=== PATIENT | female | born 1945 | race Caucasian/White ===

== ENCOUNTER 2017-04-03 14:29 | Inpatient (IN) | payer BC ==
--- NOTE | ~2017-04-03 | HP ---
History And Physical [place] [id number] [facility] [place]. [address] NAME: TY JEAN-BAPTISTE : 49 STATUS : REG ER PAT#: [id number] AGE: 71 ADM/REG DATE : 04/03/17 MR#: [id number] REPORT SERV DATE: 04/03/17 DICTATED BY: JASPER MARTELL DATE: 04/03/17 REPORT STATUS : Draft TRANSCRIBED BY: MODL DATE: 04/03/17 DATE OF ADMISSION: 04/03/2017 CHIEF COMPLAINT: Right foot infection, blood sugar high. HISTORY OF PRESENT ILLNESS: Obtained from the patient as well as the patient's family present at bedside and emergency room documents. There are no other prior medical records available for us to review. According to the information available, the patient is a pleasant 71-year-old white woman with known history of diabetes type 2 for forty years, insulin dependent, smoker, who had experienced a wound on the right foot/right fourth toe. Apparently, symptoms started several weeks ago, two to three weeks ago with small callus and then increasing redness, swelling with increased drainage, increasing pain on the right foot. She has noted that the redness and swelling has progressed from the fourth right toe to the dorsum and the plantar aspect of the right foot. No fever or chills described. Not being able to put significant weight or walk on the right foot. The patient had been seen outside by a life scientist as well as being referred to [facility] with appointment next week on 04/12/2017. Because of continuing problems with the above- mentioned redness and swelling as well as not improving despite being placed on antibiotics since 03/23/2017, the patient's family decided to bring her to the emergency room. In the emergency room, the patient was instigated, was noticed to have elevated white cell count as well as x-rays showing osteomyelitis with a fracture of the right fourth toe, therefore the patient was referred to the Hospitalist Service for further management and evaluation. Apparently, the life scientist services were already consulted from the emergency room department. PAST MEDICAL HISTORY: Significant for diabetes type 2 for forty years, insulin dependent, history of hypothyroid, history hyperlipidemia, history of arrhythmia with a prior permanent pacemaker placed apparently for some type of "heart block" in 2006 at [place], history of likely peripheral vascular disease, history of "heart failure". The patient being told also in 2006 that she had heart failure, but apparent in the context of significant and prolonged hospitalization for over three months at that time as detailed below, history of continued smoking with tobacco dependency disorder despite strong advise to quit doing so, history of diabetic peripheral neuropathy, history of GERD and history of low likely diabetic gastroparesis, history of prior prolonged hospitalization with abdominal surgery/perforated ulcers/stomach that required extensive surgery and hospitalization for three months at [facility] in 2006. Also that time, the patient had the above-mentioned pacemaker placed for "heart block" and at that time, she was told that she had heart failure in the context of multiple organ failure as related by the patient. Note that the patient has not seen a head pumper or a specialist since then. PAST SURGICAL HISTORY: As mentioned above, previous surgery for stomach perforation with prolonged hospitalization at [facility] in 2006 and permanent pacemaker placement at that time, history of wisdom teeth removal and several other teeth removal with dentures. FAMILY HISTORY: Significant for diabetes type 2. History And Physical [address] [address] NAME: TY JEAN-BAPTISTE : 49 STATUS : REG ER PAT#: [id number] AGE: 71 ADM/REG DATE : 04/03/17 MR#: [id number] REPORT SERV DATE: 04/03/17 DICTATED BY: JASPER MARTELL DATE: 04/03/17 REPORT STATUS : Draft TRANSCRIBED BY: NATALIE DATE: 04/03/17 SOCIAL HISTORY: , lives with her . Retired. Her daughter lives with them and sees with ADLs and whatever she would need. She smokes one pack of cigarettes daily, sometimes over for many years. Denies alcohol abuse. Denies illicit or recreational drug abuse. ALLERGIES: NO KNOWN DRUG ALLERGIES. MEDICATIONS AT HOME: According to the list provided, the patient is supposed to take aspirin 325 mg p.o. daily, BuSpar 15 mg p.o. b.i.d., vitamin D 1000 units p.o. daily, ciprofloxacin/Cipro 500 mg p.o. b.i.d. for fifteen days started on 03/23/2017, Neurontin 800 mg p.o. t.i.d., gentamicin ointment apply topically b.i.d. to the right fourth toe as instructed by her life scientist, NovoLog sliding scale three times a day p.r.n. blood sugar more than 200, Lantus 24 units subcu at bedtime, Synthroid 175 mcg p.o. daily, Reglan 10 mg p.o. q.i.d. before meals and at bedtime, multiple vitamin with minerals 1000 p.o. daily, Percocet 7.5/325 one p.o. at bedtime, Protonix 40 mg p.o. daily, Systane ophthalmic drops every two hours p.r.n. both eyes, Zocor 20 mg p.o. at bedtime. REVIEW OF SYSTEMS: As per H and P, otherwise negative in all review of systems. Please note, the comprehensive review of system was obtained and pertinent positives were including in the H and P. PHYSICAL EXAMINATION: GENERAL: Pleasant, cooperant, but pale, ill appearing, in mild distress due to the pain of the right foot area. VITAL SIGNS: Upon arrival in the emergency room, blood pressure 139/65, pulse 65, respiratory rate 18, temperature 98.6, oxygen saturation 94% in room air. HEENT: Pupils equal, round, and reactive to light. Extraocular movements intact. Slight exophthalmos and atraumatic and normocephalic. Dentures in place. NECK: Supple. No JVD. No bruits. No thyromegaly. No lymph nodes. LUNGS: Emphysematous confirmation with left subclavicular pacemaker in place. Good airway movement. Few scattered crackles bilateral bases. HEART: Positive S1, S2. Regular rate and rhythm. Positive soft mitral regurgitation murmur at the apex. PMI not displaced by palpation. No rub. No gallop. ABDOMEN: Positive bowel sounds. Soft. Midline previous surgical scar from infraumbilical to the sternum. No masses. No hepatosplenomegaly. No guarding. Soft. No rebound tenderness. EXTREMITIES: Decreased range of motion with osteoarthritic changes. No clubbing, no cyanosis, no edema. No calf tenderness. +1 pulses and diminished over the right foot area with significant swelling to the distal right foot with cellulitic changes extending on the dorsum of the right foot with significant cellulitis wound and redness tenderness and drainage at the fourth toe area. NEUROLOGIC: Alert and oriented x3. Grossly nonfocal. Cranial nerves 2 through 12 grossly intact. Motor strength 5/5, symmetrical bilateral. Deep tendon reflexes 2/2, symmetrical bilateral. BACK: With decreased range of motion, but no focal localized tenderness. No CVA tenderness. History And Physical [address] [address] NAME: TY JEAN-BAPTISTE : 49 STATUS : REG ER PAT#: [id number] AGE: 71 ADM/REG DATE : 04/03/17 MR#: [id number] REPORT SERV DATE: 04/03/17 DICTATED BY: JASPER MARTELL DATE: 04/03/17 REPORT STATUS : Draft TRANSCRIBED BY: MODL DATE: 04/03/17 SKIN: No bruises, no rashes, no lacerations (besides the above mentioned changes of the right foot area). Please note there is also another left great toe callus on the plantar surface of the distal phalanx of the left great toe about 5 mm with surrounding redness and swelling. No significant drainage and minimal redness around it, no real cellulitic changes noticed. SIGNIFICANT LABORATORY DATA: Chest x-ray (personal reading) showed no acute infiltrate, chronic interstitial changes. EKG (personal reading) showed ventricular paced rhythm at 65 beats per minute. No further analysis possible. X-ray of the right foot/toes showed "highly suspicion for osteomyelitis of the middle right fourth toe/phalanx with displaced fracture of the head of the proximal phalanx" (full report attached to chart and discussed with the patient and family). White cell count 13.2, hemoglobin 17.2, platelet count 392. INR 1. Sodium 139, potassium 4, chloride 101, bicarb 35, BUN 14, creatinine 0.34, glucose 113, calcium 9.2. Liver function tests within normal limits except albumin 3.4, which is only minimally decreased. Procalcitonin level less than 0.05. Lactate 1.2 which is within normal limits. ASSESSMENT/PLAN/PROBLEM LIST: The patient is a pleasant 71-year-old woman admitted with diabetic foot/toe wound with likely osteomyelitis of the right fourth toe that failed outpatient treatment. IMPRESSION: 1. ID problem:. a. Right diabetic foot and toe wounds. b. Osteomyelitis of the right fourth toe with phalanx fracture. c. Cellulitis of the right foot. d. Leukocytosis likely infectious and left great toe ulceration/callous noticed as well. For all the above, the patient has been admitted on the Hospitalist Service with the podiatry consultation pending, starting on IV antibiotic with IV Unasyn 1.5 g IV q.6 hours and vancomycin to be further dosed. We are going to check a CRP and ESR and further management depending on the patient's response to the treatment and depending on life scientist's recommendation, likely surgical intervention needed. 1. Cardiovascular:. a. Arrhythmia, status post permanent pacemaker for what was told ten years ago that was "heart block". Continue to monitor for now. Check a CK and troponin I. Consider pacer interrogation if any problems develop. b. Peripheral vascular disease, likely secondary to smoking. Continue aspirin for now. c. Congestive heart failure told by history ten years ago after prolonged hospitalization that she had "heart failure", presently no clinical evidence of congestive heart failure and there are no specific medications and to continue treatment for congestive heart failure condition. Consider to obtain a 2D echo. 2. Endocrinologic problem. a. Diabetes type 2, insulin dependent with complications. We are going to continue Lantus/Levemir, long-acting insulin, we will check a hemoglobin A1c. Provide diabetic education. Continue sliding scale. History And Physical [address] [address] NAME: TY JEAN-BAPTISTE : 49 STATUS : REG ER PAT#: [id number] AGE: 71 ADM/REG DATE : 04/03/17 MR#: [id number] REPORT SERV DATE: 04/03/17 DICTATED BY: JASPER MARTELL DATE: 04/03/17 REPORT STATUS : Draft TRANSCRIBED BY: NATALIE DATE: 04/03/17 b. Hyperlipidemia, mixed-type, low-cholesterol diet, continue Zocor. c. Hypothyroid. Continue Synthroid. Check a TSH. 3. Pulmonary:. a. Tobacco dependency disorder. Provide smoking cessation education and offer nicotine replacement therapy as a nicotine patch 21 mg daily. b. Chronic obstructive pulmonary disease (likely). Encourage smoking cessation and provide bronchodilator therapy p.r.n. shortness of breath. 4. Diabetic peripheral neuropathy. Continue Neurontin. Provide diabetic control. 5. GI problem with:. a. Gastroesophageal reflux disease, status post surgery for "stomach perforation ulcer" ten years ago. b. Diabetic gastroparesis. For all the above, we are going to continue above medications as per home including Reglan, including PPI. PROGNOSIS: Moderately good for this admission. Discussed with patient. Questions were answered in full. Please note, also the written H and P, and written orders and instructions. Please note, the patient is a full code at this moment as discussed with the patient bedside. STACY/NATALIE Jasper Martell M.D. / [id number] CC: Vic Guillermo M.D.
--- NOTE | ~2017-04-03 | DS ---
Discharge Summary [facility] [address] [place]. [address] NAME: TY JEAN-BAPTISTE : 49 STATUS : ADM IN PAT#: [id number] AGE: 71 ADM/REG DATE : 04/03/17 MR#: [id number] REPORT SERV DATE: 04/13/17 DICTATED BY: LUBA LEVY DATE: 04/13/17 REPORT STATUS : Draft TRANSCRIBED BY: MODL DATE: 04/13/17 ADMISSION DATE: 04/03/2017 DISCHARGE DATE: 04/13/2017 FINAL HOSPITAL DIAGNOSES: Listed in interim summary. CONSULTATIONS: Listed in interim summary. PROCEDURES: Listed in interim summary. CURRENT PHYSICAL FINDINGS AND HPI: Please see dictated H and P as well as interim summary dictated by myself same day. The patient was re-evaluated today with an upper extremity ultrasound to rule out DVT which was negative. She was also seen again by Cardiology and felt her left upper extremity edema was not due to her pacemaker. She was therefore felt stable for discharge today after recommendations from Infectious Disease on her diabetes. Disposition: Discharged home. Rx: Norvasc 5 twice a day, aspirin 325 once per day, BuSpar 15 b.i.d., Plavix 75, Santyl ointment, vitamin D 1000, Garamycin ophthalmic, Neurontin 800 t.i.d., Lantus 10 at bedtime, home sliding scale, levothyroxine 175, Reglan 10 before meals and at bedtime, multivitamin, Protonix 40, Betadine, Zocor 20, Systane eye drops, and Percocet 7.5-325, doxycycline 100 b.i.d. for seven days, and Augmentin 875 b.i.d. x7 days. She is to follow up with Vascular in four to six weeks, her PCP in 10-14 days, Podiatry as instructed by them. Home health was also arranged. She will follow up with her PCP in 10- 14 days to check her blood sugars and her blood pressure and coordinate all her followup care. I did ask her to adjust her sliding scale down 50% or so and to start this evening with 10 of Lantus as she has previously been taking 24 and getting 7 b.i.d. here. She will titrate her sugars up as appropriate. She will return for any problems or complications. DICTATED BY: Lobo Ricardo/NELYL Luba Levy M.D. / [id number] CC: Lobo Ricardo M.D.
--- NOTE | ~2017-04-03 | OP ---
Record Of Operation [facility] [address] [place]. [address] NAME: TY JEAN-BAPTISTE : 49 STATUS : ADM IN PAT#: [id number] AGE: 71 ADM/REG DATE : 04/03/17 MR#: [id number] REPORT SERV DATE: 04/10/17 DICTATED BY: LAURENT KO DATE: 04/10/17 REPORT STATUS : Draft TRANSCRIBED BY: MODL DATE: 04/10/17 DATE OF PROCEDURE: 04/10/2017 SURGEON: Laurent Ko D.P.M. PREOPERATIVE DIAGNOSES: Osteomyelitis, right fourth digit; abscess, right fourth and fifth digits; gangrenous change to the right fourth digit. POSTOPERATIVE DIAGNOSES: Osteomyelitis, right fourth digit; abscess, right fourth and fifth digits; gangrenous change to the right fourth digit. PROCEDURE: Amputation of the fourth and fifth digits at the metatarsophalangeal joint level, resection of the fourth and fifth metatarsal head to facilitate closure. ANESTHESIA: Local MAC consisting of 20 mL of 0.5% Marcaine plain administered at the fourth and fifth metatarsals in a Jonas block fashion. Postoperative injection was the same. HEMOSTASIS: No pneumatic ankle tourniquet was utilized. ESTIMATED BLOOD LOSS: 30 mL. MATERIALS: 0 Prolene. PATHOLOGICAL SPECIMENS: Consist of fourth and fifth digits as well as fourth and fifth metatarsal heads sent separately to rule out osteomyelitis. DESCRIPTION OF PROCEDURE: The patient was visually and verbally identified in the holding as 71-year-old white female Ty Jean-Baptiste. The patient had been cleared for this procedure. She had no questions. Right foot was identified for surgical intervention. The patient had given consent for the procedure stating that the day prior that she wished to have any procedure done necessary so she would not have to return to the operating room. That was witnessed in front of family members. The patient was then taken to the operating room and placed on the operating room table in supine position. After adequate IV sedation was achieved, a local block consisting of 20 mL of 0.5% Marcaine plain was administered to the fourth and fifth metatarsals in a Jonas block fashion. The patient was then prepped and draped in usual sterile fashion. Attention was then directed to fourth and fifth digits, whereby the fourth digit was undergoing gangrenous change, abscess was noted. metatarsophalangeal joint with extension to the fifth metatarsophalangeal joint and ulceration at the metatarsophalangeal joint level. Plantar abscess was noted to this level as well minimal in nature. In light of this fact, the decision was made for removal of the fourth and fifth digits secondary to dissecting abscess. This was accomplished. All necrotic tissue was then removed and debrided to obtain tensionless closure. The fourth and fifth metatarsal heads were then resected at the anatomical necks. The wound was then flushed with approximately 3 liters of normal saline and high-pressure irrigation. No proximal abscess was noted. The wound was then closed in simple interrupted fashion utilizing 0 Prolene. Betadine solution, dry sterile dressing was applied. The foot Record Of [address] [address] NAME: TY JEAN-BAPTISTE : 49 STATUS : ADM IN [facility]#: [id number] AGE: 71 ADM/REG DATE : 04/03/17 MR#: [id number] REPORT SERV DATE: 04/10/17 DICTATED BY: LAURENT KO DATE: 04/10/17 REPORT STATUS : Draft TRANSCRIBED BY: NATALIE DATE: 04/10/17 remained warm throughout the procedure. Adequate bleeding was accomplished. AMISHA/NATALIE Ghislaine OharaPStevie / [id number] CC: Lobo Ricardo M.D.
--- NOTE | ~2017-04-03 | CN ---
Consultation Report [facility] [address] [place]. [address] NAME: TY JEAN-BAPTISTE : 49 STATUS : ADM IN [facility]#: [id number] AGE: 71 ADM/REG DATE : 04/03/17 MR#: [id number] REPORT SERV DATE: 04/05/17 DICTATED BY: JIMMY SEN DATE: 04/05/17 REPORT STATUS : Draft TRANSCRIBED BY: MODL DATE: 04/05/17 ELECTROPHYSIOLOGY CONSULTATION DATE OF CONSULTATION: 04/05/2017 INDICATIONS: Pacer end of service. HISTORY OF PRESENT ILLNESS: Ty Jean-Baptiste is a 71-year-old female with poorly controlled diabetes and existing pacemaker implanted many years ago. She has not returned for followup in quite some time. Her pacemaker reached elective replacement interval 01/2014. She again has not been seen for followup and device is now at end of service on today's pacemaker interrogation. I have reviewed the pacemaker interrogation and agree with findings. The patient is admitted with osteomyelitis and foot infection. She had noted swelling of her right fourth toe as well as some edema. She was placed on some Cipro. This apparently progressed, the redness spread, and then she admitted to the hospital, and placed on vancomycin and Unasyn. Podiatry has been seeing the patient and Vascular Surgery has been consulted. She was noted to be VVI pacing at 65 beats per minute and a pacemaker interrogation which shows her to be at end of service with better voltage of 2.2 V. She is not pacemaker dependent. She denies chest pain or shortness of breath. PAST MEDICAL HISTORY: Diabetes, hyperlipidemia, bradycardia/sick sinus syndrome, status post pacemaker, peripheral neuropathy, history of perforated ulcer. ALLERGIES: NONE KNOWN. PRESENT MEDICATIONS: Aspirin, BuSpar, Neurontin, NovoLog, Synthroid, Reglan, Theragran, Florastor, Protonix, Zocor, thiamine, and Levemir as well as Unasyn and vancomycin. SOCIAL HISTORY: , lives with her daughter and her . She continues to smoke. No alcohol. FAMILY HISTORY: Reviewed and notable for diabetes. REVIEW OF SYSTEMS: As per the HPI. Otherwise, all review of systems negative. PHYSICAL EXAMINATION: VITAL SIGNS: Blood pressure 141/67, pulse 65, respiratory rate 18. GENERAL: Appears stated age, no distress. EYES: Sclerae anicteric, no arcus senilis. MOUTH: Oral mucosa moist, lips acyanotic. NECK: Jugular venous pressure normal, no carotid bruits. Consultation Report [place] [address] [place]. [address] NAME: TY JEAN-BAPTISTE : 49 STATUS : ADM IN [facility]#: [id number] AGE: 71 ADM/REG DATE : 04/03/17 MR#: [id number] REPORT SERV DATE: 04/05/17 DICTATED BY: JIMMY SEN DATE: 04/05/17 REPORT STATUS : Draft TRANSCRIBED BY: NATALIE DATE: 04/05/17 LUNGS: Coarse breath sounds bilateral bases. CARDIAC: Regular rate and rhythm, no murmurs, gallops or rubs. ABDOMEN: Soft, nondistended, nontender. EXTREMITIES: Right fourth toe erythematous and swollen. In additionally, left infraclavicular pacemaker site well healed. No evidence of erosion or migration. SKIN: Warm and dry. NEURO/PSYCH: Alert and oriented, nonfocal, mood appropriate. LABORATORY DATA: Potassium is 3.9, creatinine 0.7. White count 13, hemoglobin 14.7, platelets 398. Troponin negative. TSH 1.8. ECG is ventricular paced. IMPRESSION: 1. Pacer end of service, history sick sinus syndrome. 2. Osteomyelitis. 3. Diabetes. RECOMMENDATIONS: The patient is awaiting surgical intervention soon. We will plan for placement of her dual-chamber pacemaker. Addressed with her and family the rationale, logistics, and risk of pacemaker replacement. Risk include but not limited to bleeding, infection, vascular complications, disruption of system. I have discussed with them the increased risk of infection, given the present situation they voiced understanding. All questions were answered. LIAM/NATALIE Jimmy Sen M.D. / [id number] CC: MD Vic Logan M.D.
--- NOTE | ~2017-04-03 | CN ---
Consultation Report [facility] [address] [place]. [address] NAME: TY JEAN-BAPTISTE : 49 STATUS : ADM IN PAT#: [id number] AGE: 71 ADM/REG DATE : 04/03/17 MR#: [id number] REPORT SERV DATE: 04/08/17 DICTATED BY: VLAD JACOBO II DATE: 04/07/17 REPORT STATUS : Draft TRANSCRIBED BY: NATALIE DATE: 04/07/17 DATE OF CONSULTATION: 04/07/2017 REASON FOR CONSULTATION: Peripheral vascular disease. HISTORY OF PRESENT ILLNESS: Ms. Jean-Baptiste is a 71-year-old female who complains of a pain in her right foot. She has had pain over the past month with "chronic sore." She had been on antibiotics in the past with limited relief. She has a history of claudication primarily in the calf. She denies wrist pain in either extremity. PAST MEDICAL HISTORY: Diabetes, bradycardia, previous pacemaker, neuropathy, history of gastric ulcer, hyperlipidemia. SURGICAL HISTORY: She is postop day #1 from pacemaker. She had abdominal surgery secondary to an ulcer. CURRENT MEDICATIONS: Aspirin, BuSpar, Neurontin, insulin, Synthroid, Protonix, Zocor, Levemir. She is on Unasyn and vancomycin. ALLERGIES: NO KNOWN ALLERGIES. SOCIAL HISTORY: Prior to her recent illness, she was living at home independently, driving, ambulating, and doing her daily activities. She has a strong history of tobacco use. FAMILY HISTORY: Noncontributory. REVIEW OF SYSTEMS: She reports no previous stroke, amaurosis fugax, or TIA. She denies current chest pain. She has chronic shortness of breath. No upper extremity claudication. No current abdominal pain or back pain. Her lower extremity complaints as above. PHYSICAL EXAMINATION: GENERAL: Awake and alert, pleasant female, resting comfortably in hospital bed. VITAL SIGNS: Blood pressure 136/80, pulse is 65, respiratory rate 18, temperature 98. HEENT: Airways are clear. Mucous membrane is moist. Extraocular movements intact. NECK: No bruits. No JVD. EXTREMITIES: Upper extremities have palpable pulses. Equal clinical informatics strategist and full range of motion. Lower extremities, palpable femoral pulses with a right femoral bruit noted. Diminished pedal pulses with no pedal pulse on the right side. Faintly palpable pedal pulse on the left side. Open wound is noted to the right foot. Scattered varicosities are noted. CHEST: Clear. Breath sounds equal. Pacemaker bandage in place. CARDIOVASCULAR: Regular rate. No murmur. ABDOMEN: Soft, nontender. No pulsatile mass. No abdominal bruits. BACK: Symmetric. No focal tenderness. NEURO: Nonfocal. Consultation Report [facility] [address] [place]. [address] NAME: TY JEAN-BAPTISTE : 49 STATUS : ADM IN [facility]#: [id number] AGE: 71 ADM/REG DATE : 04/03/17 MR#: [id number] REPORT SERV DATE: 04/08/17 DICTATED BY: VLAD JACOBO II DATE: 04/07/17 REPORT STATUS : Draft TRANSCRIBED BY: NATALIE DATE: 04/07/17 IMAGING: She had an ultrasound, arterial Doppler that demonstrates significant peripheral vascular disease. She has an evidence of multilevel disease with stenosis within the right iliac. Her SHILPI on the right side is 0.5 with a DBI of 0.34. ASSESSMENT AND PLAN: A 71-year-old female with extensive past medical history as well as a long history of tobacco use presents with critical ischemia of right leg with multilevel occlusive disease. I recommended continuing her medical therapy. I recommended proceeding with angiogram of the right leg for further evaluation and possible endovascular therapy. Thank you for allowing me to be involved in the care of Ms. Ty Jean-Baptiste. STELLA/NATALIE Vlad Jacobo II, M.D. / [id number] CC: Lobo Ricardo
--- NOTE | ~2017-04-03 | CN ---
Consultation Report [facility] [address] [place]. [address] NAME: TY JEAN-BAPTISTE : 49 STATUS : ADM IN [facility]#: [id number] AGE: 71 ADM/REG DATE : 04/03/17 MR#: [id number] REPORT SERV DATE: 04/05/17 DICTATED BY: SILVIA ANDRADE DATE: 04/05/17 REPORT STATUS : Draft TRANSCRIBED BY: MODL DATE: 04/05/17 INFECTIOUS DISEASE CONSULTATION DATE OF CONSULTATION: 04/05/2017 REASON FOR CONSULTATION: Osteomyelitis and foot infection in a diabetic. HISTORY OF PRESENT ILLNESS: This is a 71-year-old female with a past medical history notable for longstanding diabetes, along with multiple other medical problems as outlined below. About a month ago, she noticed some redness and swelling around her right fourth toe. She does not recall any sort of trauma to the toe. She also developed some drainage, and she saw a harbor police lieutenant who placed her on Cipro. The patient tells me she took Cipro for about three weeks, but things did not improve and the redness spread to the top of the foot. She had increasing pain. For all these reasons, she presented to the emergency room and was admitted on 04/03 with obvious infection with x-rays showing a fracture of the fourth toe with associated osteomyelitis changes of the middle phalanx and possibly head of the proximal phalanx. After blood cultures were obtained, she was started on vancomycin and Unasyn. The patient has been evaluated by Dr. Ko, who has ordered a bone scan. Arterial Doppler studies show evidence of PID, and Vascular Surgery has been consulted. She has had no fever here. Denies any nausea. She also denies any outpatient dysuria. A Navas catheter was placed yesterday. PAST MEDICAL HISTORY: In addition to the diabetes is notable for hypothyroidism; hyperlipidemia; dysrhythmias and heart block, for which she has a pacemaker; possible congestive heart failure; longstanding tobacco abuse; peripheral neuropathy; perforated ulcer possibly in 2006 requiring abdominal surgery at [place]. ALLERGIES: NO KNOWN DRUG ALLERGIES. PRESENT MEDICATIONS: In addition to the antibiotics include aspirin, BuSpar, vitamin D, Neurontin, insulin sliding scale, Synthroid, Reglan, multivitamins, Protonix, Florastor, Zocor, thiamine, Levemir. SOCIAL HISTORY: She is . Her daughter lives with her and her . Her son is here in the room with her now. Continues to smoke a pack of cigarettes a day. Nondrinker. FAMILY HISTORY: Notable for diabetes. REVIEW OF SYSTEMS: As outlined above, otherwise negative. PHYSICAL EXAMINATION: VITAL SIGNS: The patient weighs 76 kg. She has been afebrile. Blood pressure 141/67, pulse 65, respiratory rate 16. Consultation Report [address] [place]. [address] NAME: TY JEAN-BAPTISTE : 49 STATUS : ADM IN PAT#: [id number] AGE: 71 ADM/REG DATE : 04/03/17 MR#: [id number] REPORT SERV DATE: 04/05/17 DICTATED BY: SILVIA ANDRADE DATE: 04/05/17 REPORT STATUS : Draft TRANSCRIBED BY: NATALIE DATE: 04/05/17 GENERAL: She is alert, in no acute distress. HEAD AND NECK: The oral cavity shows teeth in very poor repair. No thrush. LUNGS: Clear to auscultation. CARDIAC: Regular rate and rhythm. Normal S1 and S2 without murmur, gallop, or rub. She has a pacemaker. ABDOMEN: Bowel sounds present. Soft, nondistended, nontender. EXTREMITIES: Right foot exam shows diffuse edema and erythema of the right fourth toe with similar changes of the fifth toe with a lot of crusting between the two from some dried drainage. There are cellulitic changes extending to the base of the fourth and fifth toes on the dorsum of the foot and somewhat into the plantar aspect of the toe also. She has a peripheral IV in her arm without phlebitis. LABORATORY STUDIES: White blood cell count yesterday 13.0, hemoglobin 13.2, platelets 398. Creatinine 0.77, albumin 2.6. Liver function tests are normal. Hemoglobin A1c on admission 12.0. Sedimentation rate 23. C-reactive protein 20.8. Admission blood cultures negative to date. Urinalysis yesterday showed large leukocyte esterase, greater than 182 white blood cells and many white blood cell clumps. Urine culture is growing what appears to be yeast. Chest x-ray is negative. Foot x-ray and Doppler studies are as mentioned. Bone scan is pending. IMPRESSION: Osteomyelitis of the fourth toe on the right foot with possible involvement of the fifth toe, along with associated cellulitis into the foot and questionable small subcutaneous abscess. The patient has very poorly controlled diabetes and has evidence of peripheral arterial disease. The patient had no symptoms of UTI as an outpatient, but did have pyuria when a Navas catheter was placed yesterday and it appears to be growing yeast. I doubt this reflects a significant Sabine cystitis. She has been on antibiotics for a while and may have become colonized with yeast. PLAN: 1. We will continue the vancomycin and Unasyn pending further vascular workup and then anticipated surgery by Podiatry. 2. Given the degree of pyuria, we will give her one dose of fluconazole, but otherwise we will not treat this as a true UTI. LIYA/NATALIE Silvia Andrade M.D. / [id number] CC: Darwin Garnett MD Consultation Report [address] [address] NAME: TY JEAN-BAPTISTE : 49 STATUS : ADM IN [facility]#: [id number] AGE: 71 ADM/REG DATE : 04/03/17 MR#: [id number] REPORT SERV DATE: 04/05/17 DICTATED BY: SILVIA ANDRADE DATE: 04/05/17 REPORT STATUS : Draft TRANSCRIBED BY: NATALIE DATE: 04/05/17 Vic Guillermo M.D.
--- NOTE | ~2017-04-03 | OP ---
Record Of Operation [facility] [address] [place]. [address] NAME: TY JEAN-BAPTISTE : 49 STATUS : ADM IN PAT#: [id number] AGE: 71 ADM/REG DATE : 04/03/17 MR#: [id number] REPORT SERV DATE: 04/08/17 DICTATED BY: VLAD JACOBO II DATE: 04/08/17 REPORT STATUS : Draft TRANSCRIBED BY: MODL DATE: 04/08/17 DATE OF PROCEDURE: 04/08/2017 SURGEON: Vlad Jacobo M.D. PREOPERATIVE DIAGNOSES: 1. Peripheral vascular disease. 2. Critical ischemia, right leg, with ulceration. POSTOPERATIVE DIAGNOSES: 1. Peripheral vascular disease. 2. Critical ischemia, right leg, with ulceration. PROCEDURES: 1. Ultrasound-guided sheath insertion in the left common femoral artery. 2. Abdominal aortogram. 3. Right leg angiogram. 4. Percutaneous angioplasty and stent placement of right superficial femoral artery occlusion. ANESTHESIA: Local with MAC. IV FLUIDS: 500. ESTIMATED BLOOD LOSS: 10. CONTRAST: 80. DETAILS: The patient was taken to the operating room and placed in supine position on the table. Both groins were prepped and draped. I used ultrasound to identify the left common femoral artery, performed a puncture, and placed a 5-[place] sheath. I then passed a catheter into the abdominal aorta. Aortogram was performed demonstrating a patent abdominal aorta. Calcification is seen. Both renal vessels are patent. The iliacs are patent. There is a mild irregularity noted in the right common iliac, but no focal stenosis is seen. I then passed a catheter into the right common femoral. Right leg angiogram demonstrates a patent common profunda. The SFA is completely occluded just beyond its origin. There is reconstitution of the popliteal below this. All three tibial vessels appear to be patent. We then heparinized the patient, passed a 6-[place]orese sheath over the bifurcation. I was able to pass a wire and catheter through the occlusion within the superficial femoral artery and into the true lumen of the popliteal. We then performed angioplasty of the entire length of the superficial femoral artery using a 5 mm balloon. Completion angiogram demonstrates a good result in the proximal SFA with no further stenosis seen. However, in the distal SFA, there is still stenosis of more than 30% as well as a flow limiting dissection with contrast, sluggish, through this area. We then elected to proceed with stent placement. We advanced a 6-mm stent into the distal SFA and deployed the stent without difficulty. Completion angiogram demonstrates excellent result with no further stenosis, no further Record Of Operation [address] [place]. [address] NAME: TY JEAN-BAPTISTE : 49 STATUS : ADM IN PAT#: [id number] AGE: 71 ADM/REG DATE : 04/03/17 MR#: [id number] REPORT SERV DATE: 04/08/17 DICTATED BY: VLAD JACOBO II DATE: 04/08/17 REPORT STATUS : Draft TRANSCRIBED BY: MODNatasha DATE: 04/08/17 dissection, and improved flow is noted distally. I then removed all the wires and catheters, and closed percutaneously. At the end of procedure, the patient was stable. She had tolerated well. She had a palpable pulse in the right foot. She was transported to the recovery room in good condition. STELLA/NATALIE Vlad Jacobo II, M.D. / [id number] CC: Lobo Ricardo M.D.
--- NOTE | ~2017-04-03 | IDS ---
Interim Discharge Summary [facility] [address] [place]. [address] NAME: TY JEAN-BAPTISTE : 49 STATUS : ADM IN [facility]#: [id number] AGE: 71 ADM/REG DATE : 04/03/17 MR#: [id number] REPORT SERV DATE: 04/13/17 DICTATED BY: LUBA LEVY DATE: 04/13/17 REPORT STATUS : Draft TRANSCRIBED BY: MODL DATE: 04/13/17 ADMISSION DATE: 04/03/2017 DISCHARGE DATE: 04/13/2017 FINAL HOSPITAL DIAGNOSES: 1. Osteomyelitis, right fourth digit, status post amputation of fourth and fifth digits at the metatarsal phalangeal joint, resection of the fourth and fifth metatarsal head. 2. Peripheral vascular disease, status post percutaneous angioplasty and stent placement of the right superficial femoral artery. 3. Pacemaker, end of life diagnosis with subsequent replacement of pacemaker. 4. Diabetes. 5. Left upper extremity edema. 6. Tobacco dependence. 7. Gastroesophageal reflux disease. CONSULTATIONS: Dr. Andrade, Infectious Disease; Dr. Sen, Cardiology; Dr. Wong, Vascular Surgery; and Dr. Ko, Podiatry. PROCEDURES: Pacemaker placement and the above-described foot surgery. OTHER PROCEDURES: Include: 1. Arterial Doppler of the lower extremities showing significant left iliac stenosis and stenosis in the left SFA. 2. Ultrasound of the left upper extremity done on 04/10/2017 showing no left upper extremity venous thrombus demonstrated. 3. Bone scan done on 04/08/2017 showing osteomyelitis of the right fourth toe. CURRENT PHYSICAL FINDINGS AND HISTORY OF PRESENT ILLNESS: Please see initial dictated H and P by Dr. Martell. In brief, the patient is a 71-year-old female with above medical history who presented with above complaints. Vital signs at time of admission: Blood pressure was 139/65, temp was 98.6, pulse was 65. She has remained afebrile during her hospital stay. LABORATORY WORK: Procalcitonin was less than 0.05 at admission. No significant electrolyte abnormalities noted. A1c was 12. Initial white count was 13.2, subsequent has improved. Urinalysis showed positive bacteria. Blood cultures have been negative at four days. Urine culture showed multiple organisms, just contamination. Foot wound cultures were not available. HOSPITAL COURSE: The patient was admitted to the Medical Service and was started on antibiotics and sliding scale for her blood sugar coverage. Cultures were drawn. Podiatry was consulted, and the patient was afebrile. Cardiology was consulted when it was found the pacer was end of life before any other surgeries were entertained. Vascular was consulted. ID was consulted for above. Initially, Dr. Garnett was in-charge of her care. She was provided reasonable pain and nausea medications. She underwent pacemaker placement without difficulty. She then proceeded to Vascular and then ultimately to surgical repair of her problems. Postop, she was able to titrate off pain medications. She was able to Interim Discharge Summary [facility] [id number] [facility] [place]. [address] NAME: TY JEAN-BAPTISTE : 49 STATUS : ADM IN [facility]#: [id number] AGE: 71 ADM/REG DATE : 04/03/17 MR#: [id number] REPORT SERV DATE: 04/13/17 DICTATED BY: LUBA LEVY DATE: 04/13/17 REPORT STATUS : Draft TRANSCRIBED BY: NATALIE DATE: 04/13/17 discontinue her Navas and begin ambulation. She had no significant cardiac issues during her stay. She, postprocedure, did complain of some swelling to her upper extremities, and ultrasound was done showing no clot. She did not have anything that appeared to be infectious with her pacemaker site. Postamputation, she had no bleeding or wound issues. The patient did complain of some generalized edema, but her edema was certainly worse in the left upper extremity. CURRENT DISPOSITION AND PLAN: The patient is planning on going home. She will have a repeat upper extremity ultrasound today to rule out any significant changes as the family feels her swelling is somewhat worse. She will be given Lasix. She is currently off O2 and ambulatory. Wound care has been set up. We will check with Cardiology if there is any concern that her pacer placement might have contributed to the swelling. ID has switched her over to p.o. antibiotics. Pending upper extremity evaluation, may discharge later today with outpatient antibiotics and rehab. MICHAEL/NATALIE Luba Levy M.D. / [id number] CC: Lobo Ricardo M.D.
[2017-04-03 14:55] LABS: BASOPHILS 0.4 %; BASOPHILS ABSOLUTE 0.05 10/3/uL (0.0-0.16); EOSINOPHILS 0.8 %; EOSINOPHILS ABSOLUTE 0.11 10/3/uL (0.0-0.53); HEMATOCRIT 48.6 % (36.0-48.0); HEMOGLOBIN 17.2 g/dL (12.0-16.0); IMMATURE GRANULOCYTES 0.3 %; IMMATURE GRANULOCYTES ABSOLUTE 0.04 10/3/uL (0.0-0.11); LYMPHOCYTES 12.1 %; MANUAL DIFF NO %; MEAN CORPUS HGB CONC 35.4 g/dL (32.0-36.0); MEAN CORPUSCULAR HEMOGLOB 32.3 pg (26.0-34.0); MEAN CORPUSCULAR VOLUME 91.4 fL (80-100); MEAN PLATELET VOLUME 9.3 fL (9.2-13.0); MONOCYTES 9.4 %; MONOCYTES ABSOLUTE 1.25 10/3/uL (0.21-1.20); NEUTROPHILS ABSOLUTE 10.19 10/3/uL (2.02-8.40); PLATELET COUNT 392 10/3/uL (150-400); RBC DISTRIBUTION WIDTH 12.9 % (12.0-16.0); RED CELL COUNT 5.32 10/6/uL (4.0-5.6); WHITE BLOOD CELLS 13.2 10/3/uL (4.5-10.5)
[2017-04-03] MEDS ORDERED: NEUR800 PO (15:01)
[2017-04-03] MEDS ORDERED: LEVOTHYROXIN175 MCG PO (15:01)
[2017-04-03] MEDS ORDERED: REG PO (15:01)
[2017-04-03] MEDS ORDERED: PROTONIX PO (15:02)
[2017-04-03] MEDS ORDERED: LANTUS SC (15:02)
[2017-04-03] MEDS ORDERED: SYSTANE OPH (15:02)
[2017-04-03 15:03] LABS: PARTIAL THROMBO TIME 28.6 SEC (22.5-37.2); PROTIME (NOT ORD) 13.1 SEC (12.0-14.5)
[2017-04-03] MEDS ORDERED: ZOCOR20 PO (15:03)
[2017-04-03] MEDS ORDERED: BUSPAR15 M1 PO (15:03)
[2017-04-03] MEDS ORDERED: NOVOLOG SC (15:03)
[2017-04-03] MEDS ORDERED: ENDOCET1 TA1 PO (15:05)
[2017-04-03] MEDS ORDERED: CIP5 PO (15:06)
[2017-04-03] MEDS ORDERED: THERGRANM PO (15:08)
[2017-04-03] MEDS ORDERED: VITAMIN D1000 UNI1 PO (15:10)
[2017-04-03 15:11] LABS: A/G RATIO 0.8 (0.7-1.9); ALBUMIN 3.4 G/DL (3.5-5.0); ALKALINE PHOSPHATASE 107 U/L (45-117); BUN (BLOOD UREA NITROGEN) 14 MG/DL (6-23); CALCIUM, SERUM 9.2 MG/DL (8.5-10.4); CHLORIDE, SERUM 101 MMOL/L (96-112); CO2 (CARBON DIOXIDE) 35 MMOL/L (24-34); CREATININE 0.84 MG/DL (0.55-1.02); GFR AFRICAN AMERICAN 82 ML/MIN (>=60); GFR NON AFRICAN AMERICAN 71 ML/MIN (>=60); GLOBULIN 4.2 G/DL (2.5-4.1); GLUCOSE, SERUM 113 MG/DL (60-99); SGPT(ALT) 21 U/L (5-65); SODIUM, SERUM 139 MMOL/L (135-148); TOTAL BILIRUBIN 1.2 MG/DL (0-1.2); TOTAL PROTEIN 7.6 G/DL (6.0-8.5)
[2017-04-03] MEDS ORDERED: ASAEC PO (15:11)
[2017-04-03] MEDS ORDERED: GARAMYCIN OINT15 GM TOP (15:11)
[2017-04-03 15:12] LABS: SGOT(AST) 20 U/L (5-40)
[2017-04-03 15:15] LABS: LACTATE 1.2 MMOL/L (0.3-2.4)
[2017-04-03 16:00] LABS: PROCALCITONIN <0.05 ng/mL (<0.5)
[2017-04-03 20:30] LABS: C-REACTIVE PROTEIN 20.8 MG/L (<8.0); FREE T4 1.65 NG/DL (0.76-1.46); PHOSPHORUS, SERUM 3.4 MG/DL (2.5-4.5); TROPONIN I <0.02 NG/ML (<0.05)
[2017-04-03 20:31] LABS: CK-MB 1.9 NG/ML; CPK 80 U/L (0-200)
[2017-04-04 04:46] LABS: BASOPHILS 0.3 %; BASOPHILS ABSOLUTE 0.04 10/3/uL (0.0-0.16); EOSINOPHILS 1.3 %; EOSINOPHILS ABSOLUTE 0.17 10/3/uL (0.0-0.53); HEMOGLOBIN 14.7 g/dL (12.0-16.0); IMMATURE GRANULOCYTES 0.2 %; IMMATURE GRANULOCYTES ABSOLUTE 0.03 10/3/uL (0.0-0.11); LYMPHOCYTES 15.4 %; MEAN CORPUS HGB CONC 34.2 g/dL (32.0-36.0); MEAN CORPUSCULAR HEMOGLOB 31.8 pg (26.0-34.0); MEAN CORPUSCULAR VOLUME 93.1 fL (80-100); MEAN PLATELET VOLUME 9.6 fL (9.2-13.0); MONOCYTES 13.2 %; MONOCYTES ABSOLUTE 1.72 10/3/uL (0.21-1.20); NEUTROPHILS 69.6 %; NEUTROPHILS ABSOLUTE 9.06 10/3/uL (2.02-8.40); PLATELET COUNT 398 10/3/uL (150-400); RED CELL COUNT 4.62 10/6/uL (4.0-5.6)
[2017-04-04 04:47] LABS: MANUAL DIFF NO %
[2017-04-04 04:59] LABS: BUN (BLOOD UREA NITROGEN) 13 MG/DL (6-23); CHLORIDE, SERUM 107 MMOL/L (96-112); CREATININE 0.77 MG/DL (0.55-1.02); GFR AFRICAN AMERICAN 91 ML/MIN (>=60); GFR NON AFRICAN AMERICAN 79 ML/MIN (>=60); PHOSPHORUS, SERUM 3.7 MG/DL (2.5-4.5); POTASSIUM, SERUM 3.9 MMOL/L (3.5-5.3); SODIUM, SERUM 140 MMOL/L (135-148)
[2017-04-04 05:00] LABS: ALBUMIN 2.6 G/DL (3.5-5.0); CO2 (CARBON DIOXIDE) 29 MMOL/L (24-34); GLUCOSE, SERUM 89 MG/DL (60-99)
[2017-04-04 06:24] LABS: SED RATE 23 MM/HR (0-20)
[2017-04-04 14:44] LABS: ASCORBIC ACID (UR NOT ORDER) NEG (NEG); BILIRUBIN, URINE NEGATIVE (NEG); KETONE, URINE NEGATIVE (NEG); LEUKOCYTE ESTERASE(NOT OR LARGE (NEG)
[2017-04-04 14:47] LABS: WBC (NOT ORDERED) (RFLEX) > 182 (0-5)
[2017-04-05 08:02] LABS: BASOPHILS 0.3 %; BASOPHILS ABSOLUTE 0.04 10/3/uL (0.0-0.16); EOSINOPHILS 1.2 %; EOSINOPHILS ABSOLUTE 0.15 10/3/uL (0.0-0.53); HEMATOCRIT 41.5 % (36.0-48.0); IMMATURE GRANULOCYTES 0.3 %; IMMATURE GRANULOCYTES ABSOLUTE 0.04 10/3/uL (0.0-0.11); LYMPHOCYTES 10.7 %; LYMPHOCYTES ABSOLUTE 1.31 10/3/uL (0.67-4.30); MANUAL DIFF NO %; MEAN CORPUS HGB CONC 33.7 g/dL (32.0-36.0); MEAN CORPUSCULAR HEMOGLOB 31.5 pg (26.0-34.0); MEAN CORPUSCULAR VOLUME 93.5 fL (80-100); MEAN PLATELET VOLUME 9.4 fL (9.2-13.0); MONOCYTES ABSOLUTE 1.23 10/3/uL (0.21-1.20); NEUTROPHILS 77.5 %; NEUTROPHILS ABSOLUTE 9.53 10/3/uL (2.02-8.40); PLATELET COUNT 320 10/3/uL (150-400); RBC DISTRIBUTION WIDTH 12.8 % (12.0-16.0); RED CELL COUNT 4.44 10/6/uL (4.0-5.6); WHITE BLOOD CELLS 12.3 10/3/uL (4.5-10.5)
[2017-04-05 08:07] LABS: INTERNATIONAL NORMAL RATI 1.1 UNITS (-); PROTIME (NOT ORD) 14.2 SEC (12.0-14.5)
[2017-04-05 08:12] LABS: BUN (BLOOD UREA NITROGEN) 11 MG/DL (6-23); CHLORIDE, SERUM 108 MMOL/L (96-112); CO2 (CARBON DIOXIDE) 26 MMOL/L (24-34); CREATININE 0.55 MG/DL (0.55-1.02); GFR AFRICAN AMERICAN 111 ML/MIN (>=60); GFR NON AFRICAN AMERICAN 96 ML/MIN (>=60); GLUCOSE, SERUM 60 MG/DL (60-99); POTASSIUM, SERUM 4.2 MMOL/L (3.5-5.3); SODIUM, SERUM 141 MMOL/L (135-148)
[2017-04-06 06:08] LABS: BASOPHILS 0.3 %; BASOPHILS ABSOLUTE 0.03 10/3/uL (0.0-0.16); EOSINOPHILS 2.8 %; EOSINOPHILS ABSOLUTE 0.31 10/3/uL (0.0-0.53); HEMATOCRIT 44.5 % (36.0-48.0); HEMOGLOBIN 14.9 g/dL (12.0-16.0); IMMATURE GRANULOCYTES 0.2 %; IMMATURE GRANULOCYTES ABSOLUTE 0.02 10/3/uL (0.0-0.11); LYMPHOCYTES 10.8 %; LYMPHOCYTES ABSOLUTE 1.18 10/3/uL (0.67-4.30); MEAN CORPUS HGB CONC 33.5 g/dL (32.0-36.0); MEAN CORPUSCULAR HEMOGLOB 31.6 pg (26.0-34.0); MEAN CORPUSCULAR VOLUME 94.3 fL (80-100); MEAN PLATELET VOLUME 9.7 fL (9.2-13.0); MONOCYTES 10.7 %; MONOCYTES ABSOLUTE 1.17 10/3/uL (0.21-1.20); NEUTROPHILS 75.2 %; PLATELET COUNT 299 10/3/uL (150-400); RBC DISTRIBUTION WIDTH 12.9 % (12.0-16.0); RED CELL COUNT 4.72 10/6/uL (4.0-5.6); WHITE BLOOD CELLS 10.9 10/3/uL (4.5-10.5)
[2017-04-06 06:10] LABS: MANUAL DIFF NO %
[2017-04-06 06:20] LABS: BUN (BLOOD UREA NITROGEN) 11 MG/DL (6-23); CALCIUM, SERUM 8.1 MG/DL (8.5-10.4); CHLORIDE, SERUM 109 MMOL/L (96-112); CO2 (CARBON DIOXIDE) 29 MMOL/L (24-34); GFR AFRICAN AMERICAN 102 ML/MIN (>=60); GFR NON AFRICAN AMERICAN 88 ML/MIN (>=60); POTASSIUM, SERUM 4.2 MMOL/L (3.5-5.3); SODIUM, SERUM 144 MMOL/L (135-148)
[2017-04-06 06:21] LABS: GLUCOSE, SERUM 100 MG/DL (60-99)
[2017-04-07 04:33] LABS: BASOPHILS 0.4 %; BASOPHILS ABSOLUTE 0.04 10/3/uL (0.0-0.16); EOSINOPHILS 3.4 %; EOSINOPHILS ABSOLUTE 0.34 10/3/uL (0.0-0.53); HEMATOCRIT 45.7 % (36.0-48.0); HEMOGLOBIN 15.4 g/dL (12.0-16.0); IMMATURE GRANULOCYTES 0.2 %; IMMATURE GRANULOCYTES ABSOLUTE 0.02 10/3/uL (0.0-0.11); LYMPHOCYTES 16.3 %; LYMPHOCYTES ABSOLUTE 1.61 10/3/uL (0.67-4.30); MANUAL DIFF NO %; MEAN CORPUS HGB CONC 33.7 g/dL (32.0-36.0); MEAN CORPUSCULAR HEMOGLOB 31.8 pg (26.0-34.0); MEAN CORPUSCULAR VOLUME 94.4 fL (80-100); MEAN PLATELET VOLUME 9.5 fL (9.2-13.0); MONOCYTES 9.5 %; MONOCYTES ABSOLUTE 0.94 10/3/uL (0.21-1.20); NEUTROPHILS 70.2 %; NEUTROPHILS ABSOLUTE 6.93 10/3/uL (2.02-8.40); PLATELET COUNT 333 10/3/uL (150-400); RBC DISTRIBUTION WIDTH 12.8 % (12.0-16.0); RED CELL COUNT 4.84 10/6/uL (4.0-5.6); WHITE BLOOD CELLS 9.9 10/3/uL (4.5-10.5)
[2017-04-07 04:45] LABS: BUN (BLOOD UREA NITROGEN) 11 MG/DL (6-23); CALCIUM, SERUM 7.8 MG/DL (8.5-10.4); CHLORIDE, SERUM 110 MMOL/L (96-112); CO2 (CARBON DIOXIDE) 27 MMOL/L (24-34); CREATININE 0.57 MG/DL (0.55-1.02); GFR AFRICAN AMERICAN 110 ML/MIN (>=60); GFR NON AFRICAN AMERICAN 95 ML/MIN (>=60); GLUCOSE, SERUM 93 MG/DL (60-99); POTASSIUM, SERUM 4.4 MMOL/L (3.5-5.3); SODIUM, SERUM 143 MMOL/L (135-148)
[2017-04-07 04:47] LABS: PROTIME (NOT ORD) 13.3 SEC (12.0-14.5)
[2017-04-09 05:52] LABS: HEMOGLOBIN 12.4 g/dL (12.0-16.0); MEAN CORPUS HGB CONC 33.4 g/dL (32.0-36.0); MEAN CORPUSCULAR HEMOGLOB 31.2 pg (26.0-34.0); MEAN CORPUSCULAR VOLUME 93.5 fL (80-100); MEAN PLATELET VOLUME 9.3 fL (9.2-13.0); PLATELET COUNT 313 10/3/uL (150-400); RBC DISTRIBUTION WIDTH 12.6 % (12.0-16.0); RED CELL COUNT 3.97 10/6/uL (4.0-5.6); WHITE BLOOD CELLS 9.9 10/3/uL (4.5-10.5)
[2017-04-09 05:59] LABS: HEMATOCRIT 37.1 % (36.0-48.0)
[2017-04-09 06:02] LABS: BUN (BLOOD UREA NITROGEN) 12 MG/DL (6-23); CALCIUM, SERUM 8.1 MG/DL (8.5-10.4); CHLORIDE, SERUM 109 MMOL/L (96-112); CO2 (CARBON DIOXIDE) 31 MMOL/L (24-34); CREATININE 0.54 MG/DL (0.55-1.02); GFR AFRICAN AMERICAN 112 ML/MIN (>=60); GFR NON AFRICAN AMERICAN 96 ML/MIN (>=60); GLUCOSE, SERUM 125 MG/DL (60-99); SODIUM, SERUM 145 MMOL/L (135-148)
[2017-04-10 04:47] LABS: HEMATOCRIT 34.8 % (36.0-48.0); HEMOGLOBIN 11.7 g/dL (12.0-16.0)
[2017-04-10 04:54] LABS: BUN (BLOOD UREA NITROGEN) 12 MG/DL (6-23); CALCIUM, SERUM 8.2 MG/DL (8.5-10.4); CHLORIDE, SERUM 106 MMOL/L (96-112); CO2 (CARBON DIOXIDE) 28 MMOL/L (24-34); CREATININE 0.77 MG/DL (0.55-1.02); GFR AFRICAN AMERICAN 91 ML/MIN (>=60); GFR NON AFRICAN AMERICAN 79 ML/MIN (>=60); POTASSIUM, SERUM 3.9 MMOL/L (3.5-5.3); SODIUM, SERUM 140 MMOL/L (135-148)
[2017-04-10 04:55] LABS: GLUCOSE, SERUM 287 MG/DL (60-99)
[2017-04-13 06:13] LABS: BASOPHILS 0.5 %; BASOPHILS ABSOLUTE 0.06 10/3/uL (0.0-0.16); EOSINOPHILS 3.5 %; EOSINOPHILS ABSOLUTE 0.39 10/3/uL (0.0-0.53); HEMATOCRIT 32.6 % (36.0-48.0); HEMOGLOBIN 10.9 g/dL (12.0-16.0); IMMATURE GRANULOCYTES 0.5 %; IMMATURE GRANULOCYTES ABSOLUTE 0.05 10/3/uL (0.0-0.11); LYMPHOCYTES 19.4 %; LYMPHOCYTES ABSOLUTE 2.15 10/3/uL (0.67-4.30); MEAN CORPUS HGB CONC 33.4 g/dL (32.0-36.0); MEAN CORPUSCULAR HEMOGLOB 30.9 pg (26.0-34.0); MEAN CORPUSCULAR VOLUME 92.4 fL (80-100); MEAN PLATELET VOLUME 9.3 fL (9.2-13.0); MONOCYTES 14.3 %; MONOCYTES ABSOLUTE 1.58 10/3/uL (0.21-1.20); NEUTROPHILS 61.8 %; NEUTROPHILS ABSOLUTE 6.83 10/3/uL (2.02-8.40); RBC DISTRIBUTION WIDTH 12.5 % (12.0-16.0); RED CELL COUNT 3.53 10/6/uL (4.0-5.6); WHITE BLOOD CELLS 11.1 10/3/uL (4.5-10.5)
[2017-04-13 06:14] LABS: MANUAL DIFF NO %; PLATELET COUNT 472 10/3/uL (150-400)
[2017-04-13 06:27] LABS: BUN (BLOOD UREA NITROGEN) 13 MG/DL (6-23); CALCIUM, SERUM 8.2 MG/DL (8.5-10.4); CHLORIDE, SERUM 109 MMOL/L (96-112); CO2 (CARBON DIOXIDE) 29 MMOL/L (24-34); CREATININE 0.76 MG/DL (0.55-1.02); GFR AFRICAN AMERICAN 93 ML/MIN (>=60); GFR NON AFRICAN AMERICAN 80 ML/MIN (>=60); POTASSIUM, SERUM 4.5 MMOL/L (3.5-5.3); SODIUM, SERUM 144 MMOL/L (135-148)
[2017-04-13 06:28] LABS: GLUCOSE, SERUM 121 MG/DL (60-99)
[2017-04-13] MEDS ORDERED: NORV5 PO (19:21)
[2017-04-13] MEDS ORDERED: AUG875 PO (19:22)
[2017-04-13] MEDS ORDERED: PLAVIX PO (19:22)
[2017-04-13] MEDS ORDERED: VIBRATAB100 MG PO (19:25)
[2017-04-13] MEDS ORDERED: ULTRAM50 PO (19:28)
== END 2017-04-13 20:04 | disposition home health service (06) | DRG 240 ==
LOC: ER 14:29 → 2SO 18:07
PROVIDERS: Anesthesiology; Emergency Medicine; Internal Medicine; Internal Medicine Cardiovascular Disease; Student in an Organized Health Care Education/Training Program; Surgery
PROC: 0JPT0PZ Removal of Cardiac Rhythm Related Device from Trunk Subcutaneous Tissue and Fascia, Open Approach (ICD-10-PCS; principal; 2017-04-07)
PROC: 0JH606Z Insertion of Pacemaker, Dual Chamber into Chest Subcutaneous Tissue and Fascia, Open Approach (ICD-10-PCS; 2017-04-07)
PROC: B41F1ZZ Fluoroscopy of Right Lower Extremity Arteries using Low Osmolar Contrast (ICD-10-PCS; 2017-04-08)
PROC: B41D1ZZ Fluoroscopy of Aorta and Bilateral Lower Extremity Arteries using Low Osmolar Contrast (ICD-10-PCS; 2017-04-08 12:00)
PROC: 0Y6M0ZF Detachment at Right Foot, Partial 5th Ray, Open Approach (ICD-10-PCS; 2017-04-08 12:00)
PROC: 047K3DZ Dilation of Right Femoral Artery with Intraluminal Device, Percutaneous Approach (ICD-10-PCS; 2017-04-10)
PROC: 0Y6M0ZD Detachment at Right Foot, Partial 4th Ray, Open Approach (ICD-10-PCS; 2017-04-10)
PROC: 3E0T3CZ (ICD-10-PCS; 2017-04-10)
DX: E11.51 Type 2 diabetes mellitus with diabetic peripheral angiopathy without gangrene (principal); M86.9 Osteomyelitis, unspecified; E11.621 Type 2 diabetes mellitus with foot ulcer; E11.43 Type 2 diabetes mellitus with diabetic autonomic (poly)neuropathy; K31.84 Gastroparesis; I49.5 Sick sinus syndrome; E11.65 Type 2 diabetes mellitus with hyperglycemia; I47.1 Supraventricular tachycardia; N39.0 Urinary tract infection, site not specified; L03.115 Cellulitis of right lower limb; E11.69 Type 2 diabetes mellitus with other specified complication; B96.89 Other specified bacterial agents as the cause of diseases classified elsewhere; I50.9 Heart failure, unspecified; E78.2 Mixed hyperlipidemia; J44.9 Chronic obstructive pulmonary disease, unspecified; F17.210 Nicotine dependence, cigarettes, uncomplicated; K21.9 Gastro-esophageal reflux disease without esophagitis; Z45.018 Encounter for adjustment and management of other part of cardiac pacemaker; Z95.0 Presence of cardiac pacemaker
CPT/HCPCS: 33228; 37226; 71010; 73620-RT; 73630-RT; 75625; 75710; 78315; 80048; 80053; 80069; 80202; 81001; 82550; 82553; 82962; 83036; 83605; 83735; 84100; 84145; 84439; 84443; 84481; 84484; 85014; 85018; 85025; 85027; 85610; 85652; 85730; 86140; 87040; 87086; 88304; 88305; 88311; 93005; 93288; 93923; 93971; 94640; 96374; 96375; 99285; A9270-GY; A9561; C1725; C1760; C1769; C1785; C1876; C1894; J0295; J0360; J1170; J2250; J2405; J2543; J3010; J3370; Q9967